=== PATIENT | male | born 1975 | race Caucasian/White ===

== ENCOUNTER 2021-08-07 10:48 | Emergency (ER) | payer OTHER, MEDICAID, SELFPAY ==
[2021-08-07 10:52] VITALS: BP 133/92; PULSE 89; RESP 17; TEMP 36.9; O2SAT 95; BMI 27.8
--- NOTE | 2021-08-07 10:56 | DI.RAD.S_ITS ---
PROCEDURE: XR ANKLE RT MIN 3V INDICATIONS: right ankle pain TECHNIQUE: 3 views of the ankle were acquired. COMPARISON: None. FINDINGS: Bones: No fractures or dislocations. Ankle mortise is normally aligned. No suspicious bony lesions. Trace dorsal calcaneal enthesophyte. Soft tissues: Small tibiotalar joint effusion. IMPRESSION: No significant abnormality. Dictated by: Mic Moon M.D. on 08/07/2021 at 11:09 Approved by: Mic Moon M.D. on 08/07/2021 at 11:13
--- NOTE | 2021-08-07 11:48 | ED.LOWEXIN ---
HPI - Extremity Injury (Lower) General Chief Complaint: Extremity Injury, Lower Stated Complaint: RIGHT FOOR PAIN/INJURY Time Seen by Provider: 08/07/21 11:38 Source: patient Mode of arrival: Wheelchair Limitations: no limitations History of Present Illness HPI Narrative: Patient is a 45-year-old male here for evaluation of a right ankle injury. He states that last evening he jumped down out of the back of his truck and rolled his ankle. Since that time he has had increasing pain on the front/top and outside of his right ankle. Also has some swelling on the outside of his right ankle. No interventions prior to arrival Related Data Allergies Allergy/AdvReac Type Severity Reaction Status Date / Time erythromycin base Allergy Verified 08/07/21 10:56 Review of Systems Constitutional Constitutional: Reports system reviewed and no additional complaints, except as documented Musculoskeletal Musculoskeletal: Reports system reviewed and no additional complaints, except as documented and Reports as per HPI Integumentary/Breasts Skin/Breast: Reports system reviewed and no additional complaints, except as documented and Reports as per HPI Neurologic Neurologic: Reports system reviewed and no additional complaints, except as documented Hematologic/Lymphatic On Anticoagulants: No Patient History Medical History Healthy adult Social History Smoking Status: Unknown if ever smoked Smoking Status: Unknown if ever smoked alcohol intake frequency: holidays/special occasions only Substance Use Type: marijuana Exam Initial Vital Signs Initial Vital Signs: Vital Signs Temperature 98.4 F 08/07/21 10:52 Pulse Rate 89 08/07/21 10:52 Respiratory Rate 17 08/07/21 10:52 Blood Pressure 133/92 H 08/07/21 10:52 Pulse Oximetry 95 08/07/21 10:52 HENMT Head: normal to inspection and normocephalic Cardio Pulses: dorsalis pedis present on the right Skin General: no rashes or lesions noted Neuro Sensory Exam: no sensory deficits noted Extrem Other: No proximal fibular tenderness. Does have tenderness along the anterior tibiotalar joint and also along the lateral malleolus. No tenderness along the base of the 5th metatarsal. No tenderness along was from joint. No tenderness along the Achilles tendon. Procedures Orthopedic Splinting/Casting Injury #1: Lower Extremity Injury Location: ankle Lower Extremity Immobilizer: Dieter wrap Other Orthopedic Equipment: crutches Course Orders Ordered: ED Orders 08/07/21 10:56 XR ankle RT min 3V Stat Vital Signs Vital signs: Vital Signs - 8 hr 08/07/21 10:52 08/07/21 12:04 Temperature 98.4 F Pulse Rate 89 68 Respiratory Rate 17 18 Blood Pressure 133/92 H 131/85 Pulse Oximetry 95 98 MDM - Extremity Injury (Lower) MDM Narrative Medical decision making narrative: Patient is neurovascularly intact. No fractures noted on the x-ray. Will place in an Dieter bandage we also discussed other conservative measures that he could try. He is given return precautions. She expressed understanding and agreement. Discharge Plan Departure Patient Disposition: Home Clinical Impression: Ankle sprain and strain Instructions: How to Use Crutches, DI for Ankle Sprain, How To Perform RICE (Rest, Ice, Compress, Elevate) Activity Restrictions/Additional Instructions: There were no fractures noted on the x-rays. I do recommend that you keep your foot elevated and keep ice over the area. You can take the pain medication that you are ready have at home for discomfort. You can walk 1 your foot as tolerated. If your symptoms have not improved in approximately 1 week then you do need to be re-evaluated potentially have x-rays repeated.
[2021-08-07 12:04] VITALS: BP 131/85; PULSE 68; RESP 18; O2SAT 98
== END 2021-08-07 12:04 | disposition home or self-care (01) ==
PROVIDERS: Emergency Provider Emergency Medicine
DX: S93.401A Sprain of unspecified ligament of right ankle, initial encounter (principal); S96.911A Strain of unspecified muscle and tendon at ankle and foot level, right foot, initial encounter; X50.1XXA Overexertion from prolonged static or awkward postures, initial encounter; Y93.39 Activity, other involving climbing, rappelling and jumping off
CPT/HCPCS: 73610; 99283

== ENCOUNTER → 2021-08-16 19:14 | Outpatient (CLI) | payer OTHER, MEDICAID, SELFPAY ==
--- NOTE | 2021-08-16 19:17 | DI.MRI.S_ITS ---
PROCEDURE: MR ANKLE RT WO CON INDICATIONS: UNSPECIFIED INJURY OF RIGHT ANKLE TECHNIQUE: Noncontrast sagittal T1 spin echo and T2 fast spin echo with fat saturation, axial proton density fast spin echo and T2 fast spin echo with fat saturation, coronal T1 spin echo and T2 fast spin echo with fat saturation through the ankle/hindfoot. COMPARISON: [facility], CR, XR ANKLE RT MIN 3V, 08/07/2021, 10:52. FINDINGS: Image quality: Excellent. Bones and joints: A minimal displaced fracture seen in the anterior aspect, distal tibia (series 6, image 13), which extends to the articular surface. Surrounding edema is seen. T2 hyperintense/T1 hypointense signal is seen in the lateral aspect of the talar dome, compatible with osteochondral injury. Small tibiotalar joint effusion. Medial structures: The posterior tibialis, flexor digitorum longus, and flexor hallucis longus tendons are intact. Fluid signal surrounds the posterior tibialis tendon, concerning for tenosynovitis. The posterior tibial neurovascular bundle appears normal within the tarsal tunnel, without extrinsic mass effect. The deltoid and spring ligaments are intact. Lateral structures: The anterior talofibular, calcaneofibular, and posterior talofibular ligaments appear intact. More superiorly, the anterior and posterior tibiofibular ligaments appear intact, as is the intermalleolar ligament. The tibiofibular syndesmosis is normal in width at 2 mm or less. The peroneus longus and brevis tendons demonstrate normal location and morphology. The sinus tarsi demonstrates normal fatty signal, without edema, fibrosis, or cyst formation. Visualized sinus tarsi components (cervical ligament, interosseous talocalcaneal ligament, roots of the inferior extensor retinaculum) appear normal. Anterior structures: The tibialis anterior, extensor hallucis longus, and extensor digitorum longus tendons appear intact. The dorsal talonavicular ligament appears intact. Posterior and plantar structures: Achilles tendon is intact. Medial and lateral bands of the plantar fascia are of normal thickness. No abductor digiti quinti muscle atrophy to suggest Ford neuropathy. Reticulated T2 hyperintense signal in the subcutaneous fat, compatible with edema. IMPRESSION: 1. Minimal displaced fracture of the anterior aspect, distal tibia which extends to the articular surface. 2. Osteochondral injury in the lateral aspect of the talar dome. 3. Small tibiotalar joint effusion. 4. Posterior tibialis tenosynovitis. 5. Diffuse soft tissue edema. Dictated by: Mic Moon M.D. on 08/19/2021 at 8:19 Approved by: Mic Moon M.D. on 08/19/2021 at 8:37
== END ==
PROVIDERS: Referring Provider Nurse Practitioner Family; Visit Provider Nurse Practitioner Family
DX: S82.301A Unspecified fracture of lower end of right tibia, initial encounter for closed fracture (principal); S93.491A Sprain of other ligament of right ankle, initial encounter; M25.471 Effusion, right ankle; X58.XXXA Exposure to other specified factors, initial encounter
CPT/HCPCS: 73721